=== PATIENT | female | born 1960 | race Caucasian/White ===

== ENCOUNTER → 2016-10-20 | Outpatient (CLI) | payer BC ==
[~2016-10-20] MED LIST: ALLEGRA180 MG PO; AMBIEN10 MG PO; ECOTRIN325 MG PO; FISH OIL 1,2001 EACH PO; FLOMAX0.4 M1 PO; GARLIC1 CAP PO; IRON1 TA1 PO; KEFLEX500 MG PO; LEXAPRO PO; LORTAB 5/500 TA1 TA1 PO; VIT C PO; VITAMIN D400 UNI1 PO
--- NOTE | ~2016-10-20 | MY11 ---
[facility] A Service of [facility] RADIOLOGY TEXT RESULTS PATIENT: ETHAN LATIF LOCATION: [facility] : 62 UNIT #: [id number] AGE: [address]: Teresa Yo MD SEX: F ORDER DR: [id number] [facility] [address] [place], [place] [address] [id number] O MR#: [id number] Acc #: [id number] NAME: ETHAN LATIF. : 1960 SEX: F STUDY DATE/TIME: 10/20/2016 10:21 UNIT: [facility] ROOM: STUDY DESCRIPTION: MY Mammogram Screening Dig Fermín Attending Physician: Teresa Yo M.D. Referring Physician: Teresa Yo M.D. Ordering Physician: Teresa Yo M.D. Primary Care Physician: Teresa Yo M.D. MEDICAL IMAGING REPORT This report is preliminary unless electronic signature is present EXAM Digital screening mammogram 10/20/2016. HISTORY A 56-year-old woman, no risk elevation. Annual screening. COMPARISON STUDIES Mammograms date to 10/28/2006 with most recent 08/19/2014. FINDINGS Digital imaging of each breast was completed utilizing a two-view examination of each breast in craniocaudal and mediolateral-oblique projections. Review and interpretation of digital mammograms include a second review in conjunction with FDA-approved CAD device. There is a normal parenchymal presentation bilaterally consistent with the patient's age. There are no breast masses imaged and no parenchymal asymmetry is visualized. There are no suspicious microcalcifications and I see no focal architectural disturbance. IMPRESSION Negative screening digital mammogram. One-year followup recommended. Patients over the age of 40 are entered into a reminder system with target due date for the next mammogram. A result letter will also be sent to the patient. BIRADS: 1 Negative Dictated by... Ricardo Mercado M.D. [facility] A Service of [facility] RADIOLOGY TEXT RESULTS PATIENT: ETHAN LATIF LOCATION: [facility] : 62 UNIT #: [id number] AGE: [address]: Teresa Yo MD SEX: F ORDER DR: THIS IS AN ELECTRONICALLY VERIFIED REPORT Ricardo Mercado M.D. at 10/20/2016 12:53 PM Ector TD: 10/20/2016 12:01 JOB #: [id number] MEDICAL IMAGING REPORT Page 1 of 1 COPY
== END | disposition home or self-care (01) ==
LOC: CWCC 09:59
DX: Z12.31 Encounter for screening mammogram for malignant neoplasm of breast (principal)
CPT/HCPCS: G0202